=== PATIENT | male | born 1945 | race Two or more races ===

== ENCOUNTER 2021-01-10 13:40 | Emergency (ER) | payer MEDICARE, OTHER ==
[~2021-01-10] VITALS: Ht 157.5 cm; Wt 59.0 kg
[2021-01-10] MEDS ORDERED: Lidocaine 2% 20mg/ml/EPI 0.01mg/ml 20ml INJ ONE (14:15)
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
[2021-01-10] MEDS ORDERED: BACITRACIN15 GM TOPIC (15:43)
[2021-01-10] MEDS ORDERED: TYLENOL EXTRA500 MG ORAL (15:43)
[2021-01-10] MEDS ORDERED: ROBAXIN-500MG ORAL (15:43)
--- NOTE | 2021-01-10 15:57 | NUR ---
ED Nurse Note: Pt cleared by health care Provider for discharge. DC instructions/prescription was given and explained to pt and verbalized understanding of teachings. All medical devices such as ID band removed. Pt is AAO x4, ambulatory and left with all personal belongings.
--- NOTE | 2021-01-10 15:58 | NUR ---
ED Nurse Note:pa aware that there is no splint available to place. dressing and wrap placed by integrative medicine physician. after suture completed
[2021-01-10 15:59] VITALS: BP 133/88
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
== END 2021-01-10 16:03 | disposition home or self-care (01) ==
LOC: EMR 14:24
DX: S61.411A Laceration without foreign body of right hand, initial encounter (principal); V49.9XXA Car occupant (driver) (passenger) injured in unspecified traffic accident, initial encounter; Y92.410 Unspecified street and highway as the place of occurrence of the external cause; J44.9 Chronic obstructive pulmonary disease, unspecified
CPT/HCPCS: 99284